=== PATIENT | male | born 1995 | race African-American/Black ===

== ENCOUNTER → 2017-07-05 14:29 | Emergency (ER) | payer BC, OTHER ==
[~2017-07-05 14:29] MED LIST: amLODIPine TAB* 5 MG PO ONE
[2017-07-05 16:58] LABS: Hematocrit 43 % (42-52); Hemoglobin 14.5 g/dl (14.0-18.0); Mean Corpuscular HGB Conc 34 g/dl (31-36); Mean Corpuscular Hemoglobin 27 pg (27-31); Mean Corpuscular Volume 80 fL (80-94); Mean Platelet Volume 8 um3 (7.4-10.4); Red Cell Distribution Width 14 % (10.5-15); White Blood Count 7.2 10^3/ul (3.5-10.8)
[2017-07-05 17:21] LABS: Albumin 4.8 g/dL (3.2-5.2); BUN/Creatinine Ratio 9.9 (8-20); EGFR African American 121.1 (>60); EGFR Non-African American 94.2 (>60); Potassium 4.2 mmol/L (3.5-5.0); Total Bilirubin 0.9 mg/dL (0.2-1.0); Total Protein 7.8 g/dL (6.4-8.9)
[2017-07-05 17:46] VITALS: BP 138/53
--- NOTE | 2017-07-06 15:28 | ED ---
Aicha Olivera Alfonso, scribed for Christos Prater MD on 07/05/17 at 1711 . HPI Chest Pain - HPI Summary HPI Summary: This patient is a 21 year old M presenting to [facility] accompanied by female with a chief complaint of left-sided CP since yesterday. The pain is described as stabbing which lasted for a few seconds. The CP did not radiate and began at rest. The patient rates the current pain 0/10 in severity. Symptoms aggravated by nothing. Symptoms alleviated by spontaneous resolution. Patient denies diaphoresis, SOB, dyspnea, dizziness, lightheadedness, calf pain, and calf swelling. He reports HTN medication noncompliance for the last month. 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 PMHx includes HTN (amlodipine). - History of Current Complaint Chief Complaint: EDChestWallPain Time Seen by Provider: 07/05/17 16:34 Hx Obtained From: Patient Onset/Duration: Started Days Ago, Resolved Timing: Constant, Lasting Seconds Initial Severity: Moderate Current Severity: None Pain Intensity: 0 Pain Scale Used: 0-10 Numeric Chest Pain Location: Discrete at: - left sided Chest Pain Radiates: No Character: Sharp/Stabbing Aggravating Factor(s): Nothing Alleviating Factor(s): Spontaneous Resolution Associated Signs and Symptoms: Positive: Other: - diaphoresis, SOB, dyspnea, dizziness, lightheadedness, calf pain, and calf swelling - Allergy/Home Medications Allergies/Adverse Reactions: Allergies Allergy/AdvReac Type Severity Reaction Status Date / Time No Known Allergies Allergy Unverified 09/14/13 10:41 PMH/Surg Hx/FS Hx/Imm Hx Cardiovascular History: Reports: Hx Hypertension Opthamlomology History: Denies: Hx Legally Blind EENT History: Denies: Hx Deafness Infectious Disease History: No Infectious Disease History: Denies: Traveled Outside the [place] in Last 30 Days - Family History Known Family History: Positive: Hypertension, Diabetes - Social History Alcohol Use: Rare Substance Use Type: Reports: None Smoking Status (MU): Unknown if Ever Smoked Review of Systems Negative: Fever, Chills, Skin Diaphoresis Negative: Erythema Negative: Sore Throat Positive: Chest Pain. Negative: Palpitations Positive: Other - Negative dyspnea. Negative: Shortness Of Breath Negative: Abdominal Pain, Vomiting, Nausea Negative: dysuria, hematuria Positive: Other - negative calf pain. Negative: Myalgia, Edema Negative: Rash Neurological: Other - Negative dizziness, lightheadedness All Other Systems Reviewed And Are Negative: Yes Physical Exam Triage Information Reviewed: Yes Vital Signs On Initial Exam: Initial Vitals Temp Pulse Resp BP Pulse Ox 98.3 F 70 14 153/90 98 07/05/17 14:36 07/05/17 14:36 07/05/17 14:36 07/05/17 14:36 07/05/17 14:36 Vital Signs Reviewed: Yes Appearance: Positive: Well-Appearing, No Pain Distress, Well-Nourished Skin: Positive: Warm, Dry Head/Face: Positive: Normal Head/Face Inspection Eyes: Positive: Conjunctiva Clear Neck: Positive: Other: - Musculoskeletal ROM normal neck. (-) JVD, (-) Stridor, (-) Tracheal deviation, (-) Cervical adenopathy Respiratory/Lung Sounds: Positive: Other - Effort normal. (-) Respiratory distress, (-) Wheezes, (-) Rales Cardiovascular: Positive: RRR, Other - Heart sounds normal; Intact distal pulses ; The pedal pulses are 2+ and symmetric. Radial pulses are 2+ and symmetric. (- ) Murmur Abdomen Description: Positive: Nontender, Soft, Other: - Negative rebound. Negative: Distended, Guarding Musculoskeletal: Negative: Edema Left, Edema Right Neurological: Positive: Alert, Oriented to Person Place, Time Psychiatric: Positive: Affect/Mood Appropriate - Harrison Coma Scale Coma Scale Total: 15 Diagnostics - Vital Signs Vital Signs Temp Pulse Resp BP Pulse Ox 07/05/17 14:36 98.3 F 70 14 153/90 98 - Laboratory Lab Results: Lab Results 07/05/17 Range/Units 16:51 WBC 7.2 (3.5-10.8) 10^3/ul RBC 5.40 (4.0-5.4) 10^6/ul Hgb 14.5 (14.0-18.0) g/dl Hct 43 (42-52) % MCV 80 (80-94) fL MCH 27 (27-31) pg MCHC 34 (31-36) g/dl RDW 14 (10.5-15) % Plt Count 249 (150-450) 10^3/ul MPV 8 (7.4-10.4) um3 Result Diagrams: 07/05/17 16:51 07/05/17 16:51 Lab Statement: Any lab studies that have been ordered have been reviewed, and results considered in the medical decision making process. - EKG 1500 Cardiac Rate: NL - BPM 62 EKG Rhythm: Sinus Rhythm EKG Interpretation: RBBB Chest Pain Course/Dx - Course Assessment/Plan: This patient is a 21 year old M presenting to [facility] accompanied by female with a chief complaint of left-sided CP since yesterday. The pain is described as stabbing which lasted for a few seconds. The CP did not radiate and began at rest. The patient rates the current pain 0/10 in severity. Symptoms aggravated by nothing. Symptoms alleviated by spontaneous resolution. Patient denies diaphoresis, SOB, dyspnea, dizziness, lightheadedness , calf pain, and calf swelling. He reports HTN medication noncompliance for the last month. 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 PMHx includes HTN (amlodipine). An EKG reveals NSR and RBBB. Patient will be discharged with follow up from PCP and tool supervisor. The patient is agreeable with this plan. - Diagnoses Provider Diagnoses: Noncompliance with medications, Uncontrolled hypertension Discharge - Discharge Plan Condition: Stable Disposition: HOME Patient Education Materials: Hypertension (ED) Referrals: Rell Chatman MD [Primary Care Provider] - 3 Days Remington Cervantes DO [Medical Doctor] - 3 Days Additional Instructions: RETURN TO THE EMERGENCY DEPARTMENT FOR CHANGING OR WORSENING SYMPTOMS. [employer]OPER YOUR PRESCRIPTION. FOLLOW UP WITH DR. CERVANTES (PUBLIC HEALTH SANITARIAN). The documentation as recorded by the Aicha hernández Alfonso accurately reflects the service I personally performed and the decisions made by me, Christos Prater MD.
== END | disposition home or self-care (01) ==
LOC: ED 14:29
DX: I10 Essential (primary) hypertension (principal); Z91.19 Patient's noncompliance with other medical treatment and regimen
CPT/HCPCS: 36415; 80053; 84484; 85027; 93005; 99282; A9270-GY

== ENCOUNTER 2018-10-07 18:32 | Emergency (ER) | payer BC, OTHER ==
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
[2018-10-07 19:30] VITALS: BP 158/90
== END 2018-10-07 19:47 | disposition home or self-care (01) ==
LOC: ED 18:32
DX: S09.90XA Unspecified injury of head, initial encounter (principal); V49.9XXA Car occupant (driver) (passenger) injured in unspecified traffic accident, initial encounter; Y92.9 Unspecified place or not applicable
CPT/HCPCS: 99282